=== PATIENT | male | born 1990 | race Two or more races ===

== ENCOUNTER 2022-09-04 19:18 | Emergency (ER) | payer MEDICAID ==
[~2022-09-04] VITALS: Ht 162.6 cm; Wt 77.2 kg
[2022-09-04] MEDS ORDERED: ACETAMINOPHEN 500 MG TABLET PO ONE (22:45)
[2022-09-04 23:25] VITALS: BP 129/79
== END 2022-09-04 23:47 | disposition home or self-care (01) ==
LOC: EMS 19:20
DX: S06.0X0A Concussion without loss of consciousness, initial encounter (principal); X58.XXXA Exposure to other specified factors, initial encounter; Y93.89 Activity, other specified; Y92.89 Other specified places as the place of occurrence of the external cause; Y99.8 Other external cause status
CPT/HCPCS: 99282; Z7502; Z7610